=== PATIENT | male | born 1930 | race Caucasian/White ===

== ENCOUNTER 2016-06-21 09:31 | Inpatient (IN) | payer MEDICARE ==
[2016-06-21] VITALS (11 sets, daily range): BP systolic 106–191; BP diastolic 58–92; PULSE 74–94; RESP 17–31; TEMP 96.6–97.6; O2SAT 77–96
[~2016-06-21] VITALS: Ht 162.6 cm; Wt 89.1 kg
[~2016-06-21 09:31] MED LIST: ALBU0.63 NEB; ALLO100T PO; CARV3.12 PO; FERR325T PO; FURO40TA PO; IPRA1POW; LISI2.5T3 PO; POTA75TA; PRED20 PO; PRIM50TA5 PO; SPIRCAP INH; SYMB160A INH; TERA5CAP3 PO; VENTAER INH
[2016-06-21] MEDS ORDERED: FUROSEMIDE 40 MG/4 ML VIAL IV PUSH ONE (10:00)
[2016-06-21] MEDS ORDERED: methylPREDNISolone SOD SUCC 125 MG/2 ML VIAL IVP ONE (10:00)
[2016-06-21] MEDS ORDERED: SODIUM CHLORIDE 0.9% FLUSH 5 ML FLUSH IVF PRN (10:00)
[2016-06-21] MEDS: RESP: ALBUTEROL 2.5 MG/IPRATROPIUM 0.5 MG NEB (SCH) INH (10:00)
--- NOTE | 2016-06-21 10:03 | PD ---
HPI Chief Complaint: Respiratory Distress Time Seen by Provider: 09:48 Travel History International Travel<30 days: No Contact w/Intl Traveler<30days: No Traveled to known affect area: No History of Present Illness HPI 86-year-old male was brought in emergently from triage with history of respiratory distress. His brought him in and she is the main person giving history since patient seems to be in distress. As per her he has history of significant COPD and congestive heart failure. He requires 2 L of oxygen at home but states he's been using 3 L. She says that she has noticed he seems puffier than usual even though he's been taking his water pill. For past 3-4 days she has noticed that he has been short of breath even at rest. She wanted to bring him earlier but patient did not want to come in initially. Today he was willing and seemed extremely short of breath. He's been using his inhalers like he is supposed to. His said that last time he was in the emergency room and admitted was in March. When he was discharged home he was sent with oxygen. He has had ICU admissions in the past. Patient denies of any chest pain this time. In triage his oxygen saturation was 86% on 3 L of oxygen via nasal cannula. Once he was brought in the room and was settled on the stretcher his oxygen saturation was running 96-98% on 3 L via nasal cannula. However patient did appear to be in moderate distress. No history of GI bleed. Patient did appear pale and upon asking his mentioned that he has required transfusions in the past. Patient is on ferrous sulfate daily at home. He has required ablation in his stomach for GI bleed at [facility] in the past. Once patient settled and he was able to answer questions appropriately. No history of fever, chills or cough. Upon asking told me that he has borderline diabetes but not on any medications. His bedside blood glucose was 99. PFSH Past Medical History Narrative Medical List of his past medical, surgical and social history is reviewed from the nursing note. Anemia: Yes Arthritis: Yes Blood Disorders: No Anxiety: No Depression: No Cancer: No Cardiovascular Problems: Yes High Cholesterol: No Congestive Heart Failure: Yes COPD: Yes Coronary Artery Disease: Yes Diabetes: Yes (diet controlled) Patient Takes Glucophage: No Endocrine: Yes (DIET CONTROLLED DIABETES) Genitourinary: No Hepatitis: No Hiatal Hernia: Yes Hypertension: Yes Immune Disorder: No Implanted Vascular Access Dvce: Yes Medical other: Yes (GI BLEEDING, ANEMIA) Musculoskeletal: Yes Neurologic: No Psychiatric: No Reproductive: No Respiratory: Yes Immunizations Current: Yes Thyroid Disease: No Past Surgical History Abdominal Surgery: Yes (APPENDIX) Appendectomy: Yes Cardiac Surgery: Yes (LEFT CAROTID ENDARTERECTOMY) Eye Surgery: Yes (BILAT. CATARACTS) Joint Replacement: Yes Oral Surgery: Yes (DENTURES PARTIAL) Pacemaker: No Other Surgery: Yes (LEFT CAROTID ENDARTERECTOMY) Social History Alcohol Use: Yes (scotch and water 3xweek) Tobacco Use: No Substance Use: No Allergies-Medications (Allergen,Severity, Reaction): Coded Allergies: No Known Allergies (Verified , 04/10/16) Comments No known drug allergies. Reported Meds & Prescriptions Reported Meds & Active Scripts Active Reported Potassium Chloride ER (Potassium Chloride) 20 Meq Tab 40 Meq PO DAILY Ipratropium Neb (Ipratropium [place]) 0.5 Mg/2.5 Ml Amp 0.5 Mg NEB Q6HR PRN Terazosin (Terazosin HCl) 5 Mg Cap 5 Mg PO HS Primidone 50 Mg Tab 50 Mg PO DAILY Lisinopril 2.5 Mg Tab 2.5 Mg PO DAILY Furosemide 40 Mg Tab 40 Mg PO DAILY Ferrous Sulfate 325 Mg Tab 325 Mg PO DAILY Carvedilol 3.125 Mg Tab 3.125 Mg PO BID Allopurinol 100 Mg Tab 100 Mg PO DAILY Ventolin Hfa 18 GM Inh (Albuterol Sulfate) 90 Mcg/Act Aer 2 Puff INH Q4H PRN Albuterol Neb (Albuterol Sulfate) 0.63 Mg/3 Ml Neb 0.63 Mg NEB Q6HR PRN Narrative Medication List of his home medications reviewed from the nursing note. Review of Systems Except as stated in HPI: all other systems reviewed are Neg Physical Exam Narrative GENERAL: Awake, alert, elderly, moderate to significant respiratory distress, anxious SKIN: Warm and dry. Pale. Generalized edema, senile ecchymosis HEAD: Atraumatic. Normocephalic. EYES: Pupils equal and round. No scleral icterus. No injection or drainage. Pallor ENT: No nasal bleeding or discharge. Mucous membranes pink and moist. NECK: Trachea midline. No JVD. CARDIOVASCULAR: Regular rate and rhythm. No murmur appreciated. RESPIRATORY: Decreased air entry bilaterally, end expiratory wheeze, accessory muscles of respiration used. GASTROINTESTINAL: Abdomen soft, non-tender, nondistended. Hepatic and splenic margins not palpable. MUSCULOSKELETAL: No obvious deformities. No clubbing. No cyanosis. No edema. NEUROLOGICAL: Awake and alert. No obvious cranial nerve deficits. Motor grossly within normal limits. Normal speech. PSYCHIATRIC: Appropriate mood and affect; insight and judgment normal. Data Data Last Documented VS Vital Signs Date Time Temp Pulse Resp B/P Pulse Ox O2 Delivery O2 Flow Rate FiO2 06/21/16 11:00 86 28 158/72 95 Nasal Cannula 3 06/21/16 09:33 97.6 Orders Electrocardiogram (06/21/16 ) Complete Blood Count With Diff (06/21/16 09:49) Comprehensive Metabolic Panel (06/21/16 09:49) B-Type Natriuretic Peptide (06/21/16 09:49) Prothrombin Time / Inr (Pt) (06/21/16 09:49) Magnesium (Mg) (06/21/16 09:49) Troponin I (06/21/16 09:49) Urinalysis - C+S If Indicated (06/21/16 09:49) Iv Access Insert/Monitor (06/21/16 09:49) Ecg Monitoring (06/21/16 09:49) Oximetry (06/21/16 09:49) Oxygen Administration (06/21/16 09:49) Chest, Single Ap (06/21/16 09:49) Sodium Chloride 0.9% Flush (Ns Flush) (06/21/16 10:00) Methylprednisolone So Succ Inj (Solumedr (06/21/16 10:00) Albuterol-Ipratropium Neb (Duoneb Neb) (06/21/16 10:00) Furosemide Inj (Lasix Inj) (06/21/16 10:00) Type And Screen (06/21/16 09:50) Admit To Inpatient (06/21/16 ) Code Status (06/21/16 12:16) Vital Signs (Adult) Q4H (06/21/16 12:16) Activity Oob With Assistance (06/21/16 12:16) Diet Heart Healthy (06/21/16 Lunch) Sodium Chloride 0.9% Flush (Ns Flush) (06/21/16 12:30) Sodium Chloride 0.9% Flush (Ns Flush) (06/21/16 21:00) Acetaminophen (Tylenol) (06/21/16 12:30) Ondansetron Inj (Zofran Inj) (06/21/16 13:00) Bisacodyl Supp (Dulcolax Supp) (06/21/16 13:00) Magnesium Hydroxide Liq (Milk Of Magnesi (06/21/16 14:00) Resp Oxygen Dariel C Titrat 1-4 L (06/21/16 ) Pt Request For Service (06/21/16 12:16) Scd Bilateral/Knee High LEVI.BID (06/21/16 12:16) Naloxone Inj (Narcan Inj) (06/21/16 12:30) Inpatient Certification (06/21/16 ) Methylprednisolone So Succ Inj (Solumedr (06/21/16 18:00) Urinary Catheter Insert/Apply (06/21/16 12:19) Albuterol-Ipratropium Neb (Duoneb Neb) (06/21/16 16:00) Albuterol-Ipratropium Neb (Duoneb Neb) (06/21/16 14:00) Complete Blood Count With Diff (06/22/16 06:00) Basic Metabolic Panel (Bmp) (06/22/16 06:00) Magnesium (Mg) (06/22/16 06:00) Ns + Kcl 20 Meq Inj (Ns + Kcl 20 Meq Inj (06/21/16 12:30) Allopurinol (Zyloprim) (06/22/16 09:00) Ferrous Sulfate (Ferrous Sulfate) (06/22/16 09:00) Lisinopril (Prinivil) (06/22/16 09:00) Primidone (Mysoline) (06/22/16 09:00) Terazosin (Hytrin) (06/21/16 21:00) Carvedilol (Coreg) (06/21/16 21:00) Chest, Pa & Lat (06/22/16 08:00) Furosemide Inj (Lasix Inj) (06/21/16 18:00) Junior Legal Secretary / Telemetry LEVI.Q8H (06/21/16 12:29) Admit Order (Ed Use Only) (06/21/16 12:36) Labs Laboratory Tests Test 06/21/16 06/21/16 09:55 10:35 White Blood Count 7.4 TH/MM3 Red Blood Count 3.11 MIL/MM3 Hemoglobin 9.5 GM/DL Hematocrit 29.2 % Mean Corpuscular Volume 93.9 FL Mean Corpuscular Hemoglobin 30.7 PG Mean Corpuscular Hemoglobin 32.7 % Concent Red Cell Distribution Width 15.6 % Platelet Count 232 TH/MM3 Mean Platelet Volume 7.3 FL Neutrophils (%) (Auto) 81.7 % Lymphocytes (%) (Auto) 8.8 % Monocytes (%) (Auto) 8.9 % Eosinophils (%) (Auto) 0.4 % Basophils (%) (Auto) 0.2 % Neutrophils # (Auto) 6.0 TH/MM3 Lymphocytes # (Auto) 0.7 TH/MM3 Monocytes # (Auto) 0.7 TH/MM3 Eosinophils # (Auto) 0.0 TH/MM3 Basophils # (Auto) 0.0 TH/MM3 CBC Comment DIFF FINAL Differential Comment Sodium Level 125 MEQ/L Potassium Level 4.9 MEQ/L Chloride Level 85 MEQ/L Carbon Dioxide Level 33.0 MEQ/L Anion Gap 7 MEQ/L Blood Urea Nitrogen 17 MG/DL Creatinine 1.00 MG/DL Estimat Glomerular Filtration 71 ML/MIN Rate Random Glucose 94 MG/DL Calcium Level 8.3 MG/DL Magnesium Level 2.0 MG/DL Total Bilirubin 0.4 MG/DL Aspartate Amino Transf 14 U/L (AST/SGOT) Alanine Aminotransferase 14 U/L (ALT/SGPT) Alkaline Phosphatase 127 U/L Troponin I 0.02 NG/ML B-Type Natriuretic Peptide 628 PG/ML Total Protein 6.2 GM/DL Albumin 3.2 GM/DL Blood Type O POSITIVE Antibody Screen NEGATIVE Prothrombin Time 11.3 SEC Prothromb Time International 1.0 RATIO Ratio Urine Color LIGHT-YELLOW Urine Turbidity CLEAR Urine pH 6.0 Urine Specific [place] 1.008 Urine Protein NEG mg/dL Urine Glucose (UA) NEG mg/dL Urine Ketones NEG mg/dL Urine Occult Blood NEG Urine Nitrite NEG Urine Bilirubin NEG Urine Urobilinogen LESS THAN 2.0 MG/DL Urine Leukocyte Esterase NEG Urine RBC 1 /hpf Urine WBC LESS THAN 1 /hpf Urine Mucus FEW /lpf Microscopic Urinalysis Comment CULT NOT INDICATED MDM Medical Decision Making Medical Screen Exam Complete: Yes Emergency Medical Condition: Yes Medical Record Reviewed: Yes Interpretation(s) Twelve-lead EKG was reviewed by me. Normal sinus rhythm, normal axis, right bundle branch block. Heart rate of 73 bpm. Differential Diagnosis Acute COPD exacerbation, hypoxia, pneumonia, pleural effusion, congestive heart failure, symptomatic anemia Narrative Course 10:02 AM awaiting for the blood test results to come back. I have ordered 3 duo nebs for him along with IV Solu-Medrol bolus. Patient will also be getting 60 mg of IV Lasix. He does appear pale and there is a chance he might require blood transfusion. I will reassess him in a bit. I anticipate admission given his initial presentation. 11:24 AM blood test results are back and patient has hyponatremia and congestive heart failure. Awaiting for the hospitalist to call back for admission. Upon reassessment patient feels a little bit better. Then about the admission and are happy with the plan. 12:30 PM reassessed the patient and he feels a little better. He has so far urinated about 800 ML's of urine. I've ordered a Miller catheter. Critical Care Narrative Aggregate critical care time was 30 minutes. Time to perform other separately billable procedures was not included in the critical care time. My time did not include minutes spent treating any other patients simultaneously or on activities that did not directly contribute to the patient's treatment. The services I provided to this patient were to treat and/or prevent clinically significant deterioration that could result in: Dyspnea, I provided critical care services requiring my management, as noted below: Chart data review, documentation time, medication orders and management, vital sign assessments/reviewing monitor data, ordering and reviewing lab tests, ordering and interpreting/reviewing x-rays and diagnostic studies, care of the patient and discussion of the patient with the admitting physicians. Procedures EKG Prior to Arrival: No HemaPrompt Point of Care Internal Pos. & Neg. Controls: Passed Fecal Specimen Occult Blood: Negative Diagnosis Primary Impression: Respiratory distress Additional Impressions: Acute exacerbation of chronic obstructive pulmonary disease (COPD) Systolic CHF, acute on chronic Hyponatremia Fluid overload Qualified Code: E87.70 - Hypervolemia, unspecified hypervolemia type Admitting Information Admitting Physician Requests: it Nicole Watson MD Jun 21, 2016 10:03
[2016-06-21] MEDS ORDERED: IPRA0.02 NEB (10:05)
[2016-06-21] MEDS ORDERED: POTA-163 PO (10:05)
[2016-06-21 10:11] LABS: BASOPHIL % 0.2 % (0.0-2.0); EOSINOPHIL % 0.4 % (0.0-4.0); HEMATOCRIT 29.2 % (39.0-51.0); HEMO FLAGS DIFF FINAL; LYMPH % 8.8 % (9.0-44.0); LYMPHOCYTE # 0.7 TH/MM3 (1.0-4.8); MEAN CELL VOLUME 93.9 FL (80.0-100.0); MEAN CORPUSCULAR HEMOGLOBIN 30.7 PG (27.0-34.0); MEAN CORPUSCULAR HGB CONC 32.7 % (32.0-36.0); MONO % 8.9 % (0.0-8.0); NEUT % 81.7 % (16.0-70.0); PLATELET COUNT 232 TH/MM3 (150-450); RED BLOOD COUNT 3.11 MIL/MM3 (4.50-5.90); RED CELL DISTRIBUTION WIDTH 15.6 % (11.6-17.2); WHITE BLOOD COUNT 7.4 TH/MM3 (4.0-11.0)
--- NOTE | 2016-06-21 10:17 | RADRPT ---
EXAM DATE/TIME: 06/21/2016 09:52 [facility] COMPARISON: CHEST SINGLE AP, April 10, 2016, 15:34. INDICATIONS : COPD, CHF, Short of breath for 3 days. MEDICAL HISTORY : Congestive heart failure. Chronic obstructive pulmonary disease. SURGICAL HISTORY : None. ENCOUNTER: Initial ACUITY: 2 days PAIN SCORE: 0/10 LOCATION: Bilateral chest FINDINGS: A single view of the chest demonstrates minimal bibasilar densities and small effusions. Cardiomegaly and tortuous thoracic aorta. The cardiomediastinal contours are unremarkable. Osseous structures ar e intact. Right humeral prosthesis. CONCLUSION: 1. Cardiomegaly and small bilateral pleural effusions. 2. Bibasilar atelectasis. James Maciel MD on June 21, 2016 at 10:15 Board Certified Radiologist. This report was verified electronically.
[2016-06-21 10:28] LABS: ANION GAP 7 MEQ/L (5-15); AST (GOT) 14 U/L (15-37); BLOOD UREA NITROGEN 17 MG/DL (7-18); CHLORIDE 85 MEQ/L (98-107); GLOMERULAR FILTRATION RATE 71 ML/MIN (>89); POTASSIUM 4.9 MEQ/L (3.5-5.1); SODIUM (NA) 125 MEQ/L (136-145)
[2016-06-21 10:33] LABS: ALKALINE PHOSPHATASE 127 U/L (45-117); ALT (GPT) 14 U/L (12-78); TOTAL BILIRUBIN ADULT 0.4 MG/DL (0.2-1.0)
[2016-06-21 10:54] LABS: BLOOD, URINE NEG (NEG); COMMENT (UR) CULT NOT INDICATED; CULTURE IF INDICATED CULT NOT INDICATED; GLUCOSE,URINE NEG (NEG); KETONE, URINE NEG (NEG); MUCUS URINE FEW /lpf (OCC); NITRITE,URINE NEG (NEG); URINE COLOR LIGHT-YELLOW (YELLW/STRAW)
[2016-06-21 11:04] LABS: PROTHROMBIN TIME - PATIENT 11.3 SEC (9.8-11.6)
[2016-06-21] MEDS ORDERED: ACETAMINOPHEN 325 MG TAB PO PRN (12:30)
[2016-06-21] MEDS ORDERED: SODIUM CHLORIDE 0.9% FLUSH 5 ML FLUSH FLUSH PRN (12:30)
[2016-06-21] MEDS ORDERED: NALOXONE HCL 0.4 MG/ML AMP IV PRN (12:30)
[2016-06-21] MEDS ORDERED: BISACODYL 10 MG SUPP PR PRN (13:00)
[2016-06-21] MEDS ORDERED: ONDANSETRON HCL 4 MG/2 ML VIAL IVP PRN (13:00)
[2016-06-21] MEDS: NS + KCL 20 MEQ INJ 1,000 ML IV SCH (13:13)
[2016-06-21] MEDS ORDERED: MAGNESIUM HYDROXIDE SUSP 30 ML CUP PO PRN (14:00)
--- NOTE | 2016-06-21 16:11 | HHI.HP ---
HPI Service [facility] Hospitalists Primary Care Physician Brady Whitfield MD Admission Diagnosis respiratory distress, COPD and CHF exacerbation, hyponatremia Chief Complaint: SOB Travel History International Travel<30 Days: No Contact w/Intl Traveler <30 Da: No Traveled to Known Affected Are: No History of Present Illness Patient is a pleasant 86-year-old male with known history of COPD and systolic CHF. Patient was most recently hospitalized at [facility] 03/1712 due to COPD exacerbation. During that hospitalization, patient was treated with IV steroids, IV Levaquin, when necessary BiPAP was used as well. Patient' s mobility was compromised by severe acute compression fracture involving T7. Patient returns to [place] this morning with respiratory distress. Patient complains of worsening shortness of breath for 3-4 days prior to arrival. Patient also complains of worsening lower extremity weakness starting at his feet and going all the way up to his lower abdomen. Patient also noted swelling in his face. For the last several days patient has been too weak to get off of the toilet by himself and his had to pull him up. Patient reports that he is been using his inhalers for COPD as prescribed. Per ER physician patient originally presented to the ER with some respiratory distress. In triage his oxygen saturation was 86% on 3 L by nasal cannula. Patient given IV Lasix, Solu-Medrol, nebulized breathing treatments and is now saturating adequately on 3 L by nasal cannula. At the time of my examination patient appeared comfortable, but quickly became short of breath with minimal movement in the bed. Patient has obvious volume overload with 2+ pitting edema in his lower extremities up to the level of his knees. On auscultation of his lungs, his air movement is poor, tight, and wheezing. Patient will be admitted to [facility] for further evaluation and treatment. I anticipate that patient will require minimally a 3 to four- day hospitalization. Review of Systems Constitutional: DENIES: Diaphoretic episodes, Fatigue, Fever, Weight gain, Weight loss, Chills, Dizziness, Change in appetite, Night Sweats Endocrine: DENIES: Heat/cold intolerance, Polydipsia, Polyuria, Polyphagia Eyes: DENIES: Blurred vision, Diplopia, Eye inflammation, Eye pain, Vision loss , Photosensitivity, Double Vision Ears, nose, mouth, throat: DENIES: Tinnitus, Hearing loss, Vertigo, Nasal discharge, Oral lesions, Throat pain, Hoarseness, Ear Pain, Running Nose, Epistaxis, Sinus Pain, Toothache, Odynophagia Respiratory: COMPLAINS OF: Wheezing, Shortness of breath, DENIES: Apneas, Cough, Snoring, Hemoptysis, Sputum production Cardiovascular: DENIES: Chest pain, Palpitations, Syncope, Dyspnea on Exertion , PND, Lower Extremity Edema, Orthopnea, Claudication Gastrointestinal: DENIES: Abdominal pain, Black stools, Bloody stools, BRB per rectum, Constipation, Diarrhea, GERD, Nausea, Reflux, Vomiting, Difficulty Swallowing, Anorexia Genitourinary: DENIES: Urinary frequency, Urinary incontinence, Urgency, Hematuria, Dysuria, Nocturia Musculoskeletal: DENIES: Joint pain, Muscle aches, Stiffness, Joint Swelling, Back pain, Neck pain Integumentary: DENIES: Abnormal pigmentation, Nail changes, Pruritus, Rash Hematologic/lymphatic: DENIES: Bruising, Lymphadenopathy Immunologic/allergic: DENIES: Eczema, Urticaria Neurologic: DENIES: Abnormal gait, Headache, Localized weakness, Paresthesias, Seizures, Speech Problems, Tremor, Poor Balance Psychiatric: DENIES: Anxiety, Confusion, Mood changes, Depression, Hallucinations, Agitation, Suicidal Ideation, Homicidal Ideation, Delusions, History of Bipolar, History of Schizophrenia Past Family Social History Past Medical History Recurrent anemia, Gastric antral vascular ectasia Patient is followed by gastroenterology at [facility] Patient has undergone argon plasma coagulation, January 2013 Per family, patient requires frequent transfusions for this condition Hypertension COPD mod/severe Gout Benign essential tremor Hyperlipidemia Venous insufficiency Liver cirrhosis CHF. systolic . ef 50% AAA Pulmonary HTN 2D echo (06/25/15): - Estimated EF 50%. - Mild hypokinesis of the apical myocardium - PA peak pressure mildly increased at 45mmHg Past Surgical History Appendectomy Cataract surgery Rotator cuff repair Tonsillectomy and adenoidectomy Bilateral total knee after plasty Endovascular repair of abdominal aortic aneurysm spring 2013 Left carotid endarterectomy Reported Medications Reported Meds & Active Scripts Active Reported Potassium Chloride ER (Potassium Chloride) 20 Meq Tab 40 Meq PO DAILY Ipratropium Neb (Ipratropium [place]) 0.5 Mg/2.5 Ml Amp 0.5 Mg NEB Q6HR PRN Terazosin (Terazosin HCl) 5 Mg Cap 5 Mg PO HS Primidone 50 Mg Tab 50 Mg PO DAILY Lisinopril 2.5 Mg Tab 2.5 Mg PO DAILY Furosemide 40 Mg Tab 40 Mg PO DAILY Ferrous Sulfate 325 Mg Tab 325 Mg PO DAILY Carvedilol 3.125 Mg Tab 3.125 Mg PO BID Allopurinol 100 Mg Tab 100 Mg PO DAILY Ventolin Hfa 18 GM Inh (Albuterol Sulfate) 90 Mcg/Act Aer 2 Puff INH Q4H PRN Albuterol Neb (Albuterol Sulfate) 0.63 Mg/3 Ml Neb 0.63 Mg NEB Q6HR PRN Allergies: Coded Allergies: No Known Allergies (Verified , 04/10/16) Family History non-contributory Social History Hx of tobacco use. He quit smoking 25 years ago. 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 Patient has 4 children one of whom lives locally One of his daughters is a nurse who lives in [place] who is very involved with his medical conditions Physical Exam Vital Signs Vital Signs Date Time Temp Pulse Resp B/P Pulse Ox O2 Delivery O2 Flow Rate FiO2 06/21/16 13:47 92 Nasal Cannula 3.00 06/21/16 11:00 86 28 158/72 95 Nasal Cannula 3 06/21/16 09:50 74 24 187/86 92 Nasal Cannula 3 06/21/16 09:48 82 31 191/92 92 Nasal Cannula 3 06/21/16 09:41 92 Nasal Cannula 3 06/21/16 09:41 73 31 96 Nasal Cannula 3 06/21/16 09:41 92 Nasal Cannula 3 06/21/16 09:33 97.6 83 18 145/75 82 Nasal Cannula 3 Physical Exam GENERAL: This is a well-nourished, well-developed patient, in no apparent distress. SKIN: No rashes, ecchymoses or lesions. Cool and dry. HEAD: Atraumatic. Normocephalic. No temporal or scalp tenderness. EYES: Pupils equal round and reactive. Extraocular motions intact. No scleral icterus. No injection or drainage. ENT: Nose without bleeding, purulent drainage or septal hematoma. Throat without erythema, tonsillar hypertrophy or exudate. Uvula midline. Airway patent. NECK: Trachea midline. No JVD or lymphadenopathy. Supple, nontender, no meningeal signs. CARDIOVASCULAR: Regular rate and rhythm without murmurs, gallops, or rubs. RESPIRATORY: Clear to auscultation. Breath sounds equal bilaterally. No wheezes , rales, or rhonchi. GASTROINTESTINAL: Abdomen soft, non-tender, nondistended. No hepato-splenomegaly , or palpable masses. No guarding. MUSCULOSKELETAL: 2+ pitting edema starting in his feet and extending up to his knees x b/l NEUROLOGICAL: Awake and alert. Cranial nerves II through XII intact. Motor and sensory grossly within normal limits. Five out of 5 muscle strength in all muscle groups. Normal speech. Laboratory Laboratory Tests Test 06/21/16 06/21/16 09:55 10:35 White Blood Count 7.4 Red Blood Count 3.11 Hemoglobin 9.5 Hematocrit 29.2 Mean Corpuscular Volume 93.9 Mean Corpuscular Hemoglobin 30.7 Mean Corpuscular Hemoglobin 32.7 Concent Red Cell Distribution Width 15.6 Platelet Count 232 Mean Platelet Volume 7.3 Neutrophils (%) (Auto) 81.7 Lymphocytes (%) (Auto) 8.8 Monocytes (%) (Auto) 8.9 Eosinophils (%) (Auto) 0.4 Basophils (%) (Auto) 0.2 Neutrophils # (Auto) 6.0 Lymphocytes # (Auto) 0.7 Monocytes # (Auto) 0.7 Eosinophils # (Auto) 0.0 Basophils # (Auto) 0.0 CBC Comment DIFF FINAL Differential Comment Sodium Level 125 Potassium Level 4.9 Chloride Level 85 Carbon Dioxide Level 33.0 Anion Gap 7 Blood Urea Nitrogen 17 Creatinine 1.00 Estimat Glomerular Filtration 71 Rate Random Glucose 94 Calcium Level 8.3 Magnesium Level 2.0 Total Bilirubin 0.4 Aspartate Amino Transf 14 (AST/SGOT) Alanine Aminotransferase 14 (ALT/SGPT) Alkaline Phosphatase 127 Troponin I 0.02 B-Type Natriuretic Peptide 628 Total Protein 6.2 Albumin 3.2 Blood Type O POSITIVE Antibody Screen NEGATIVE Prothrombin Time 11.3 Prothromb Time International 1.0 Ratio Urine Color LIGHT-YELLOW Urine Turbidity CLEAR Urine pH 6.0 Urine Specific [place] 1.008 Urine Protein NEG Urine Glucose (UA) NEG Urine Ketones NEG Urine Occult Blood NEG Urine Nitrite NEG Urine Bilirubin NEG Urine Urobilinogen LESS THAN 2.0 Urine Leukocyte Esterase NEG Urine RBC 1 Urine WBC LESS THAN 1 Urine Mucus FEW Microscopic Urinalysis Comment CULT NOT INDICATED Result Diagram: 06/21/1695406/21/16954 Septic Shock Reassessment Heart: Regular rate and rhythm Lungs: Clear Skin: Warm Peripheral Pulses: Bounding Right Radial Bounding Left Radial Bounding Right Popliteal Bounding Left Popliteal Bounding Right Dorsalis Pedis Bounding Left Dorsalis Pedis Bounding Right Posterior Tibial Bounding Left Posterior Tibial Capillary Refill: Brisk Assessment and Plan Problem List: (1) Systolic CHF, acute on chronic Status: Chronic Plan: - continue IV diuresis with lasix 40mg IV BID, kcl - Repeat CXR in AM - BMP, Mag, BNP in AM (2) Acute exacerbation of chronic obstructive pulmonary disease (COPD) Status: Acute Plan: - IV solumedrol - duonebs q4hrs, and q2hrs prn - symbicort - repeat CXR in AM (3) T7 vertebral fracture Status: Acute Plan: - PT to evaluate (4) BPH (benign prostatic hyperplasia) Status: Chronic Plan: - continue home meds (5) HTN (hypertension) Status: Acute Plan: - stable - lisinopril, coreg (6) Gout Status: Chronic Plan: - continue allopurinol Physician Certification 2 Midnight Certification Type: Admission for Inpatient Services Order for Inpatient Services The services are ordered in accordance with Medicare regulations or non- Medicare payer requirements, as applicable. In the case of services not specified as inpatient-only, they are appropriately provided as inpatient services in accordance with the 2-midnight benchmark. Estimated LOS (days): 3 3 days is the estimated time the patient will need to remain in the hospital, assuming treatment plan goals are met and no additional complications. Post-Hospital Plan: SNF Problem Qualifiers (1) T7 vertebral fracture: (2) HTN (hypertension): Qualified Code: I10 - Essential hypertension (3) Gout: Qualified Code: M1A.9XX0 - Chronic gout without tophus, unspecified cause, unspecified site Jakob Friedman DO Jun 21, 2016 16:11
[2016-06-21] MEDS: RESP: ALBUTEROL 2.5 MG/IPRATROPIUM 0.5 MG NEB (SCH) NEB (16:44)
[2016-06-21] MEDS: methylPREDNISolone SOD SUCC 40 MG/1 ML VIAL IV PUSH SCH (18:05)
[2016-06-21] MEDS: FUROSEMIDE 40 MG/4 ML VIAL IV PUSH SCH (18:06)
[2016-06-21] MEDS: BUDESONIDE-FORMOTEROL 160/4.5 MCG INHALER INH SCH (21:00)
[2016-06-21] MEDS: TERAZOSIN HCL 5 MG CAP PO SCH (21:26)
[2016-06-21] MEDS: CARVEDILOL 3.125 MG TAB PO SCH (21:26)
[2016-06-21] MEDS: POTASSIUM CHLORIDE 20 MEQ CONTROLLED RELEASE TAB PO SCH (21:26)
[2016-06-21] MEDS: SODIUM CHLORIDE 0.9% FLUSH 5 ML FLUSH FLUSH SCH (21:27)
[2016-06-22] VITALS (10 sets, daily range): BP systolic 118–166; BP diastolic 56–73; PULSE 70–88; RESP 18–20; TEMP 97–98.3; O2SAT 93–100
[2016-06-22] MEDS: methylPREDNISolone SOD SUCC 40 MG/1 ML VIAL IV PUSH SCH ×4 (00:49→17:14)
[2016-06-22] MEDS: NS + KCL 20 MEQ INJ 1,000 ML IV SCH ×2 (00:50→16:16)
[2016-06-22] MEDS: RESP: ALBUTEROL 2.5 MG/IPRATROPIUM 0.5 MG NEB (SCH) NEB ×4 (07:34→20:17)
--- NOTE | 2016-06-22 08:33 | RADRPT ---
EXAM DATE/TIME: 06/22/2016 07:57 [facility] COMPARISON: No previous studies available for comparison. INDICATIONS : Short of breath. MEDICAL HISTORY : Chronic obstructive pulmonary disease. Cardiovascular disease. Hypertension. Hiatal hernia. SURGICAL HISTORY : None. ENCOUNTER: Subsequent ACUITY: 2 days PAIN SCORE: 2/10 LOCATION: Bilateral chest FINDINGS: PA and lateral views of the chest demonstrate cardiomegaly with tortuous thoracic aorta. Small bilate ral pleural effusions. Minimal bibasilar densities. Right humeral/shoulder prosthesis. CONCLUSION: 1. Small bilateral pleural effusions and bibasilar atelectasis. 2. Cardiomegaly. James Maciel MD on June 22, 2016 at 8:30 Board Certified Radiologist. This report was verified electronically.
[2016-06-22] MEDS: SODIUM CHLORIDE 0.9% FLUSH 5 ML FLUSH FLUSH SCH ×2 (08:44→21:41)
[2016-06-22] MEDS: BUDESONIDE-FORMOTEROL 160/4.5 MCG INHALER INH SCH ×2 (08:45→21:42)
[2016-06-22] MEDS: FUROSEMIDE 40 MG/4 ML VIAL IV PUSH SCH ×2 (08:46→17:15)
[2016-06-22] MEDS: ALLOPURINOL 100 MG TAB PO SCH (08:46)
[2016-06-22] MEDS: POTASSIUM CHLORIDE 20 MEQ CONTROLLED RELEASE TAB PO SCH ×2 (08:46→21:41)
[2016-06-22] MEDS: FERROUS SULFATE 325 MG (65 MG ELEMENTAL IRON) TAB PO SCH (08:46)
[2016-06-22] MEDS: LISINOPRIL 5 MG TAB PO SCH (08:46)
[2016-06-22] MEDS: CARVEDILOL 3.125 MG TAB PO SCH ×2 (08:46→21:41)
[2016-06-22 09:33] LABS: AUTOMATED NEUTROPHIL # 7.9 TH/MM3 (1.8-7.7); BASOPHIL % 0.1 % (0.0-2.0); HEMATOCRIT 28.2 % (39.0-51.0); HEMO FLAGS DIFF FINAL; LYMPH % 6.1 % (9.0-44.0); LYMPHOCYTE # 0.5 TH/MM3 (1.0-4.8); MEAN CELL VOLUME 93.3 FL (80.0-100.0); MEAN CORPUSCULAR HEMOGLOBIN 31.1 PG (27.0-34.0); MEAN CORPUSCULAR HGB CONC 33.4 % (32.0-36.0); MONO % 2.6 % (0.0-8.0); NEUT % 91.2 % (16.0-70.0); PLATELET COUNT 232 TH/MM3 (150-450); RED BLOOD COUNT 3.03 MIL/MM3 (4.50-5.90); RED CELL DISTRIBUTION WIDTH 15.6 % (11.6-17.2); WHITE BLOOD COUNT 8.7 TH/MM3 (4.0-11.0)
[2016-06-22 09:53] LABS: MAGNESIUM 1.9 MG/DL (1.5-2.5); POTASSIUM 4.8 MEQ/L (3.5-5.1)
[2016-06-22] MEDS: PRIMIDONE 50 MG TAB PO SCH (10:31)
--- NOTE | 2016-06-22 14:24 | HHI.PR ---
Subjective Remarks Pt reports that overall he is feeling better today He states that his LE edema is less and that he is not having as difficult of time to breath. Objective Vitals Vital Signs Date Time Temp Pulse Resp B/P Pulse Ox O2 Delivery O2 Flow Rate FiO2 06/22/16 12:00 97.8 70 20 136/62 98 06/22/16 09:14 75 06/22/16 08:40 Nasal Cannula 3.00 06/22/16 08:00 98.1 74 20 159/70 100 06/22/16 07:37 97 Nasal Cannula 3.00 06/22/16 04:00 98.0 73 20 145/65 96 06/22/16 00:00 97.9 88 20 139/70 95 06/21/16 23:52 94 Nasal Cannula 3.00 06/21/16 20:32 82 06/21/16 20:00 97.4 87 20 106/58 96 06/21/16 20:00 Nasal Cannula 3.00 06/21/16 18:27 96.6 94 24 142/70 95 06/21/16 15:48 83 17 151/73 93 Nasal Cannula 3 06/21/16 06/21/16 06/22/16 15:00 23:00 07:00 Intake Total 240 ml 120 ml Output Total 1000 ml 1800 ml 1200 ml Balance -1000 ml -1560 ml -1080 ml Intake Oral 240 ml 120 ml Output Urine Total 1000 ml 1800 ml 1200 ml # Voids 0 0 # Bowel Movements 0 0 Result Diagram: 06/22/16 0840 06/22/16 0840 Other Results Laboratory Tests Test 06/21/16 06/21/16 06/22/16 06/22/16 09:55 10:35 08:40 10:00 White Blood Count 7.4 TH/MM3 8.7 TH/MM3 Red Blood Count 3.11 MIL/MM3 3.03 MIL/MM3 Hemoglobin 9.5 GM/DL 9.4 GM/DL Hematocrit 29.2 % 28.2 % Mean Corpuscular Volume 93.9 FL 93.3 FL Mean Corpuscular Hemoglobin 30.7 PG 31.1 PG Mean Corpuscular Hemoglobin 32.7 % 33.4 % Concent Red Cell Distribution Width 15.6 % 15.6 % Platelet Count 232 TH/MM3 232 TH/MM3 Mean Platelet Volume 7.3 FL 7.4 FL Neutrophils (%) (Auto) 81.7 % 91.2 % Lymphocytes (%) (Auto) 8.8 % 6.1 % Monocytes (%) (Auto) 8.9 % 2.6 % Eosinophils (%) (Auto) 0.4 % 0.0 % Basophils (%) (Auto) 0.2 % 0.1 % Neutrophils # (Auto) 6.0 TH/MM3 7.9 TH/MM3 Lymphocytes # (Auto) 0.7 TH/MM3 0.5 TH/MM3 Monocytes # (Auto) 0.7 TH/MM3 0.2 TH/MM3 Eosinophils # (Auto) 0.0 TH/MM3 0.0 TH/MM3 Basophils # (Auto) 0.0 TH/MM3 0.0 TH/MM3 CBC Comment DIFF FINAL DIFF FINAL Differential Comment Sodium Level 125 MEQ/L 128 MEQ/L Potassium Level 4.9 MEQ/L 4.8 MEQ/L Chloride Level 85 MEQ/L 85 MEQ/L Carbon Dioxide Level 33.0 MEQ/L 37.0 MEQ/L Anion Gap 7 MEQ/L 6 MEQ/L Blood Urea Nitrogen 17 MG/DL 22 MG/DL Creatinine 1.00 MG/DL 1.03 MG/DL Estimat Glomerular Filtration 71 ML/MIN 68 ML/MIN Rate Random Glucose 94 MG/DL 145 MG/DL Calcium Level 8.3 MG/DL 8.4 MG/DL Magnesium Level 2.0 MG/DL 1.9 MG/DL Total Bilirubin 0.4 MG/DL Aspartate Amino Transf 14 U/L (AST/SGOT) Alanine Aminotransferase 14 U/L (ALT/SGPT) Alkaline Phosphatase 127 U/L Troponin I 0.02 NG/ML B-Type Natriuretic Peptide 628 PG/ML 291 PG/ML Total Protein 6.2 GM/DL Albumin 3.2 GM/DL Blood Type O POSITIVE Antibody Screen NEGATIVE Prothrombin Time 11.3 SEC Prothromb Time International 1.0 RATIO Ratio Urine Color LIGHT-YELLOW Urine Turbidity CLEAR Urine pH 6.0 Urine Specific [place] 1.008 Urine Protein NEG mg/dL Urine Glucose (UA) NEG mg/dL Urine Ketones NEG mg/dL Urine Occult Blood NEG Urine Nitrite NEG Urine Bilirubin NEG Urine Urobilinogen LESS THAN 2.0 MG/DL Urine Leukocyte Esterase NEG Urine RBC 1 /hpf Urine WBC LESS THAN 1 /hpf Urine Mucus FEW /lpf Microscopic Urinalysis Comment CULT NOT INDICATED Imaging Last Impressions Chest X-Ray 06/22/16 0800 Signed Impressions: Service Date/Time: Wednesday, June 22, 2016 07:57 - CONCLUSION: 1. Small bilateral pleural effusions and bibasilar atelectasis. 2. Cardiomegaly. James Maciel MD Objective Remarks General: NAD, AAOx3 Chest: Bilateral wheezing and coarse breath sounds Cardiac: Regular Abd: +BS, soft ND/NT Ext: 1+ RLE edema, minimal LLE edema A/P Problem List: (1) Systolic CHF, acute on chronic Status: Chronic Plan: - Continue IV diuresis with Lasix 40mg IV BID and potassium - Repeat CXR (06/22) --> Small bilateral pleural effusions and bibasilar atelectasis. Cardiomegaly. - BMP, Mag, BNP in AM - Pt currently on 3L via NC - Monitor I&Os - Supportive care - DVT prophylaxis (2) Acute exacerbation of chronic obstructive pulmonary disease (COPD) Status: Acute Plan: - IV Solu-Medrol - Duonebs q4hrs, and q2hrs prn - Symbicort - Supplemental O2 (3) T7 vertebral fracture Status: Acute Plan: - Pt walked well with PT today, no recommendations from PT for continued outpt therapy (4) BPH (benign prostatic hyperplasia) Status: Chronic Plan: - continue home meds (5) HTN (hypertension) Status: Acute Plan: - stable - lisinopril, coreg (6) Gout Status: Chronic Plan: - continue allopurinol Assessment and Plan Patient examined. Assessment and plan formulated with Milagros Hayes PA-C. I agree with the above. 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
[2016-06-22] MEDS: LEVOFLOXACIN 500 MG PREMIX INJ 100 ML IV SCH (17:13)
[2016-06-22] MEDS: TERAZOSIN HCL 5 MG CAP PO SCH (21:41)
[2016-06-23] VITALS (7 sets, daily range): BP systolic 112–136; BP diastolic 56–74; PULSE 56–106; RESP 18–22; TEMP 97.3–98.5; O2SAT 95–97
[2016-06-23] MEDS: NS + KCL 20 MEQ INJ 1,000 ML IV SCH ×2 (00:53→09:20)
[2016-06-23] MEDS: methylPREDNISolone SOD SUCC 40 MG/1 ML VIAL IV PUSH SCH ×5 (00:53→23:10)
[2016-06-23 07:29] LABS: AUTOMATED NEUTROPHIL # 9.4 TH/MM3 (1.8-7.7); HEMATOCRIT 27.6 % (39.0-51.0); HEMO FLAGS DIFF FINAL; LYMPH % 5.8 % (9.0-44.0); LYMPHOCYTE # 0.6 TH/MM3 (1.0-4.8); MEAN CELL VOLUME 93.9 FL (80.0-100.0); MEAN CORPUSCULAR HEMOGLOBIN 31.5 PG (27.0-34.0); MEAN CORPUSCULAR HGB CONC 33.5 % (32.0-36.0); MONO % 2.9 % (0.0-8.0); NEUT % 91.3 % (16.0-70.0); PLATELET COUNT 230 TH/MM3 (150-450); RED BLOOD COUNT 2.93 MIL/MM3 (4.50-5.90); WHITE BLOOD COUNT 10.3 TH/MM3 (4.0-11.0)
[2016-06-23 07:47] LABS: BICARBONATE 35.7 MEQ/L (21.0-32.0); MAGNESIUM 1.9 MG/DL (1.5-2.5)
[2016-06-23] MEDS: RESP: ALBUTEROL 2.5 MG/IPRATROPIUM 0.5 MG NEB (SCH) NEB ×4 (07:59→19:13)
[2016-06-23] MEDS: PRIMIDONE 50 MG TAB PO SCH (09:16)
[2016-06-23] MEDS: LISINOPRIL 5 MG TAB PO SCH (09:16)
[2016-06-23] MEDS: FERROUS SULFATE 325 MG (65 MG ELEMENTAL IRON) TAB PO SCH (09:16)
[2016-06-23] MEDS: ALLOPURINOL 100 MG TAB PO SCH (09:16)
[2016-06-23] MEDS: POTASSIUM CHLORIDE 20 MEQ CONTROLLED RELEASE TAB PO SCH (09:16)
[2016-06-23] MEDS: FUROSEMIDE 40 MG/4 ML VIAL IV PUSH SCH (09:16)
[2016-06-23] MEDS: SODIUM CHLORIDE 0.9% FLUSH 5 ML FLUSH FLUSH SCH ×2 (09:16→23:07)
[2016-06-23] MEDS: CARVEDILOL 3.125 MG TAB PO SCH ×2 (09:16→23:07)
[2016-06-23] MEDS: BUDESONIDE-FORMOTEROL 160/4.5 MCG INHALER INH SCH ×2 (09:17→23:07)
--- NOTE | 2016-06-23 11:53 | EKG ---
Date Performed: 06/21/2016 Time Performed: 09:52:49 PTAGE: 86 years EKG: Sinus rhythm LOW QRS VOLTAGE IN EXTREMITY LEADS MARKED JUNCTIONAL ST DEPRESSION ABNORMAL ECG PREVIOUS TRACING : 04/12/2016 17.42 DOCTOR: Flo Elizondo Interpretating Date/Time 06/23/2016 11:52:42
[2016-06-23] MEDS: LEVOFLOXACIN 500 MG PREMIX INJ 100 ML IV SCH (15:54)
[2016-06-23] MEDS: FUROSEMIDE 40 MG TAB PO SCH (17:08)
[2016-06-23] MEDS: TERAZOSIN HCL 5 MG CAP PO SCH (23:06)
[2016-06-24] VITALS (10 sets, daily range): BP systolic 112–159; BP diastolic 53–67; PULSE 72–91; RESP 18–22; TEMP 96–98.6; O2SAT 93–99
[2016-06-24] MEDS: methylPREDNISolone SOD SUCC 40 MG/1 ML VIAL IV PUSH SCH ×3 (05:31→18:33)
[2016-06-24] MEDS: RESP: ALBUTEROL 2.5 MG/IPRATROPIUM 0.5 MG NEB (SCH) NEB ×4 (08:06→22:00)
[2016-06-24 08:15] LABS: BICARBONATE 35.8 MEQ/L (21.0-32.0)
[2016-06-24 08:22] LABS: POTASSIUM 5.8 MEQ/L (3.5-5.1)
[2016-06-24] MEDS: ALLOPURINOL 100 MG TAB PO SCH (08:36)
[2016-06-24] MEDS: PRIMIDONE 50 MG TAB PO SCH (08:36)
[2016-06-24] MEDS: CARVEDILOL 3.125 MG TAB PO SCH ×2 (08:37→22:17)
[2016-06-24] MEDS: SODIUM CHLORIDE 0.9% FLUSH 5 ML FLUSH FLUSH SCH ×2 (08:38→22:17)
[2016-06-24] MEDS: FERROUS SULFATE 325 MG (65 MG ELEMENTAL IRON) TAB PO SCH (08:38)
[2016-06-24] MEDS: LISINOPRIL 5 MG TAB PO SCH (08:38)
[2016-06-24] MEDS: BUDESONIDE-FORMOTEROL 160/4.5 MCG INHALER INH SCH ×2 (08:38→21:00)
[2016-06-24] MEDS: FUROSEMIDE 40 MG TAB PO SCH ×2 (08:38→18:33)
[2016-06-24] MEDS: POTASSIUM CHLORIDE 20 MEQ CONTROLLED RELEASE TAB PO SCH (08:39)
--- NOTE | 2016-06-24 13:47 | HHI.PR ---
Subjective Remarks No new complaints. Pt reports that he is feeling overall better and is anxious to go home Objective Vitals Vital Signs Date Time Temp Pulse Resp B/P Pulse Ox O2 Delivery O2 Flow Rate FiO2 06/24/16 12:10 97 Nasal Cannula 3.00 06/24/16 12:00 98.6 80 20 116/53 98 06/24/16 08:09 97 Nasal Cannula 3.00 06/24/16 08:00 97.3 74 18 134/59 99 06/24/16 04:00 97.3 72 18 114/61 97 06/24/16 00:00 97.3 78 18 117/54 94 06/23/16 22:06 Nasal Cannula 3.00 06/23/16 19:05 97.5 91 20 115/56 95 06/23/16 15:58 98.2 106 22 136/74 96 06/23/16 15:27 97 Nasal Cannula 3.00 06/23/16 06/23/16 06/24/16 15:00 23:00 07:00 Intake Total 720 ml 242 ml 104 ml Output Total 1150 ml 650 ml 900 ml Balance -430 ml -408 ml -796 ml Intake Oral 720 ml 240 ml 100 ml IV Total 2 ml 4 ml Output Urine Total 1150 ml 650 ml 900 ml # Bowel Movements 0 0 0 Result Diagram: 06/23/16 0610 06/24/16 0649 Other Results Laboratory Tests Test 06/23/16 06/24/16 06:10 06:49 White Blood Count 10.3 TH/MM3 Red Blood Count 2.93 MIL/MM3 Hemoglobin 9.2 GM/DL Hematocrit 27.6 % Mean Corpuscular Volume 93.9 FL Mean Corpuscular Hemoglobin 31.5 PG Mean Corpuscular Hemoglobin 33.5 % Concent Red Cell Distribution Width 16.0 % Platelet Count 230 TH/MM3 Mean Platelet Volume 7.5 FL Neutrophils (%) (Auto) 91.3 % Lymphocytes (%) (Auto) 5.8 % Monocytes (%) (Auto) 2.9 % Eosinophils (%) (Auto) 0.0 % Basophils (%) (Auto) 0.0 % Neutrophils # (Auto) 9.4 TH/MM3 Lymphocytes # (Auto) 0.6 TH/MM3 Monocytes # (Auto) 0.3 TH/MM3 Eosinophils # (Auto) 0.0 TH/MM3 Basophils # (Auto) 0.0 TH/MM3 CBC Comment DIFF FINAL Differential Comment Sodium Level 129 MEQ/L 131 MEQ/L Potassium Level 5.0 MEQ/L 5.8 MEQ/L Chloride Level 89 MEQ/L 88 MEQ/L Carbon Dioxide Level 35.7 MEQ/L 35.8 MEQ/L Anion Gap 4 MEQ/L 7 MEQ/L Blood Urea Nitrogen 28 MG/DL 33 MG/DL Creatinine 1.10 MG/DL 1.18 MG/DL Estimat Glomerular Filtration 63 ML/MIN 59 ML/MIN Rate Random Glucose 144 MG/DL 135 MG/DL Calcium Level 7.9 MG/DL 8.1 MG/DL Magnesium Level 1.9 MG/DL B-Type Natriuretic Peptide 118 PG/ML Imaging Last Impressions Chest X-Ray 06/22/16 0800 Signed Impressions: Service Date/Time: Wednesday, June 22, 2016 07:57 - CONCLUSION: 1. Small bilateral pleural effusions and bibasilar atelectasis. 2. Cardiomegaly. James Maciel MD Objective Remarks General: NAD, AAOx3 Chest: Bilateral wheezing, improving air movement bilaterally Cardiac: Regular Abd: +BS, soft ND/NT Ext: minimal LLE edema A/P Problem List: (1) Systolic CHF, acute on chronic Status: Chronic Plan: - Continue diuresis with Lasix but this was converted to 40mg po BID on 06/23. Potassium held today due to hyperkalemia. - Repeat CXR (06/22) --> Small bilateral pleural effusions and bibasilar atelectasis. Cardiomegaly. - BMP, Mag, BNP in AM - Remove Miller in AM - Pt currently on 3L via [place] - Monitor I&Os - Supportive care - DVT prophylaxis (2) Acute exacerbation of chronic obstructive pulmonary disease (COPD) Status: Acute Plan: - IV Solu-Medrol - Duonebs q4hrs, and q2hrs prn - Symbicort - Supplemental O2 (3) T7 vertebral fracture Status: Acute Plan: - Pt walked well with PT and no recommendations from PT for continued outpt therapy (4) BPH (benign prostatic hyperplasia) Status: Chronic Plan: - continue home meds (5) HTN (hypertension) Status: Acute Plan: - stable - lisinopril, coreg (6) Gout Status: Chronic Plan: - continue allopurinol Assessment and Plan Patient examined. Assessment and plan formulated with Milagros Hayes PA-C. I agree with the above. 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
--- NOTE | 2016-06-24 15:30 | HHI.PR ---
Subjective Remarks LATE ENTRY FOR 06/23/16 PROGRESS NOTE FROM 06/23/16 FAILED TO SAVE IN [employer]. LE edema gone. Less SOB from admission. Objective Vitals Vital Signs Date Time Temp Pulse Resp B/P Pulse Ox O2 Delivery O2 Flow Rate FiO2 06/24/16 12:10 97 Nasal Cannula 3.00 06/24/16 12:00 98.6 80 20 116/53 98 06/24/16 08:09 97 Nasal Cannula 3.00 06/24/16 08:00 97.3 74 18 134/59 99 06/24/16 04:00 97.3 72 18 114/61 97 06/24/16 00:00 97.3 78 18 117/54 94 06/23/16 22:06 Nasal Cannula 3.00 06/23/16 19:05 97.5 91 20 115/56 95 06/23/16 15:58 98.2 106 22 136/74 96 06/23/16 06/23/16 06/24/16 15:00 23:00 07:00 Intake Total 720 ml 242 ml 104 ml Output Total 1150 ml 650 ml 900 ml Balance -430 ml -408 ml -796 ml Intake Oral 720 ml 240 ml 100 ml IV Total 2 ml 4 ml Output Urine Total 1150 ml 650 ml 900 ml # Bowel Movements 0 0 0 Result Diagram: 06/23/16 0610 06/24/16 0649 Imaging Last Impressions Chest X-Ray 06/22/16 0800 Signed Impressions: Service Date/Time: Wednesday, June 22, 2016 07:57 - CONCLUSION: 1. Small bilateral pleural effusions and bibasilar atelectasis. 2. Cardiomegaly. James Maciel MD Objective Remarks GENERAL: This is a well-nourished, well-developed patient, in no apparent distress. CARDIOVASCULAR: Regular rate and rhythm without murmurs, gallops, or rubs. RESPIRATORY: improved air movement from admission, but still with moderate b/l wheezing GASTROINTESTINAL: Abdomen soft, non-tender, nondistended. Normal active bowel sounds MUSCULOSKELETAL: Extremities without clubbing, cyanosis, or edema. NEURO: Alert & Oriented x4 to person, place, time, situation. Moves all ext x4 A/P Problem List: (1) Systolic CHF, acute on chronic Status: Chronic Plan: - continue IV diuresis with lasix 40mg IV BID, kcl --> change to PO - Repeat CXR in AM - BMP, Mag, BNP in AM (2) Acute exacerbation of chronic obstructive pulmonary disease (COPD) Status: Acute Plan: - improving - IV solumedrol - duonebs q4hrs, and q2hrs prn - symbicort (3) T7 vertebral fracture Status: Acute Plan: - PT to evaluate (4) BPH (benign prostatic hyperplasia) Status: Chronic Plan: - continue home meds (5) HTN (hypertension) Status: Acute Plan: - stable - lisinopril, coreg (6) Gout Status: Chronic Plan: - continue allopurinol Assessment and Plan Patient examined. Assessment and plan formulated with Milagros Hayes PA-C. I agree with the above. 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
[2016-06-24] MEDS: LEVOFLOXACIN 500 MG PREMIX INJ 100 ML IV SCH (18:35)
[2016-06-24] MEDS: TERAZOSIN HCL 5 MG CAP PO SCH (22:17)
[2016-06-25] VITALS (8 sets, daily range): BP systolic 102–138; BP diastolic 53–71; PULSE 84–115; RESP 20–22; TEMP 97.4–98.6; O2SAT 93–96
[2016-06-25] MEDS: methylPREDNISolone SOD SUCC 40 MG/1 ML VIAL IV PUSH SCH ×5 (00:15→23:11)
[2016-06-25] MEDS: RESP: ALBUTEROL 2.5 MG/IPRATROPIUM 0.5 MG NEB (SCH) NEB ×3 (08:06→15:34)
[2016-06-25 08:30] LABS: BICARBONATE 35.8 MEQ/L (21.0-32.0); MAGNESIUM 1.9 MG/DL (1.5-2.5)
[2016-06-25 08:41] LABS: POTASSIUM 5.7 MEQ/L (3.5-5.1)
[2016-06-25] MEDS: POTASSIUM CHLORIDE 20 MEQ CONTROLLED RELEASE TAB PO SCH ×2 (09:00→09:52)
[2016-06-25] MEDS: SODIUM CHLORIDE 0.9% FLUSH 5 ML FLUSH FLUSH SCH ×2 (09:50→23:11)
[2016-06-25] MEDS: CARVEDILOL 3.125 MG TAB PO SCH ×2 (09:51→23:10)
[2016-06-25] MEDS: FERROUS SULFATE 325 MG (65 MG ELEMENTAL IRON) TAB PO SCH (09:51)
[2016-06-25] MEDS: BUDESONIDE-FORMOTEROL 160/4.5 MCG INHALER INH SCH ×2 (09:51→23:11)
[2016-06-25] MEDS: FUROSEMIDE 40 MG TAB PO SCH ×2 (09:52→17:44)
[2016-06-25] MEDS: LISINOPRIL 5 MG TAB PO SCH (09:53)
[2016-06-25] MEDS: PRIMIDONE 50 MG TAB PO SCH (09:53)
[2016-06-25] MEDS: ALLOPURINOL 100 MG TAB PO SCH (09:54)
--- NOTE | 2016-06-25 14:30 | HHI.PR ---
Subjective Remarks Pt c/o swelling at left arm. SOB improved from admission. Objective Vitals Vital Signs Date Time Temp Pulse Resp B/P Pulse Ox O2 Delivery O2 Flow Rate FiO2 06/25/16 12:00 98.5 89 22 129/68 96 06/25/16 08:12 94 Nasal Cannula 2.00 06/25/16 08:00 Nasal Cannula 3.00 Humidified 06/25/16 08:00 97.4 115 20 138/71 93 06/25/16 03:50 97.5 90 22 134/60 95 06/24/16 23:30 Nasal Cannula 3.00 06/24/16 23:18 97.5 85 22 126/60 93 06/24/16 22:01 98 Nasal Cannula 2.00 06/24/16 20:58 96.0 82 22 159/67 96 06/24/16 16:00 97.3 91 20 112/57 96 06/24/16 06/24/16 06/25/16 15:00 23:00 07:00 Intake Total 720 ml 574 ml 4 ml Output Total 825 ml 500 ml 1350 ml Balance -105 ml 74 ml -1346 ml Intake Oral 720 ml 360 ml 0 ml IV Total 214 ml 4 ml Output Urine Total 825 ml 500 ml 1350 ml # Bowel Movements 3 0 0 Result Diagram: 06/23/16 0610 06/25/16 0700 Imaging Last Impressions Chest X-Ray 06/22/16 0800 Signed Impressions: Service Date/Time: Wednesday, June 22, 2016 07:57 - CONCLUSION: 1. Small bilateral pleural effusions and bibasilar atelectasis. 2. Cardiomegaly. James Maciel MD Objective Remarks GENERAL: This is a well-nourished, well-developed patient, in no apparent distress. CARDIOVASCULAR: Regular rate and rhythm without murmurs, gallops, or rubs. RESPIRATORY: improved air movement from admission, but still with moderate b/l wheezing GASTROINTESTINAL: Abdomen soft, non-tender, nondistended. Normal active bowel sounds MUSCULOSKELETAL: Extremities without clubbing, cyanosis, or edema. NEURO: Alert & Oriented x4 to person, place, time, situation. Moves all ext x4 A/P Problem List: (1) Systolic CHF, acute on chronic Status: Chronic Plan: - PO lasix - Repeat CXR in AM - BMP, Mag, BNP in AM (2) Acute exacerbation of chronic obstructive pulmonary disease (COPD) Status: Acute Plan: - improving - IV solumedrol --> hopefully will be able to convert to PO prednisone 3/4 - duonebs q4hrs, and q2hrs prn - symbicort (3) T7 vertebral fracture Status: Acute Plan: - PT to evaluate (4) BPH (benign prostatic hyperplasia) Status: Chronic Plan: - continue home meds (5) HTN (hypertension) Status: Acute Plan: - stable - lisinopril, coreg (6) Gout Status: Chronic Plan: - continue allopurinol Problem Qualifiers (1) T7 vertebral fracture: (2) HTN (hypertension): Qualified Code: I10 - Essential hypertension (3) Gout: Qualified Code: M1A.9XX0 - Chronic gout without tophus, unspecified cause, unspecified site Jakob Friedman DO Jun 25, 2016 14:30 (3) Gout: Qualified Code: M1A.9XX0 - Chronic gout without tophus, unspecified cause, unspecified site Jakob Friedman DO Jun 25, 2016 14:30
[2016-06-25] MEDS: LEVOFLOXACIN 500 MG PREMIX INJ 100 ML IV SCH (15:57)
[2016-06-25] MEDS: RESP: ALBUTEROL 2.5 MG/IPRATROPIUM 0.5 MG NEB (PRN) NEB (19:36)
[2016-06-25] MEDS: TERAZOSIN HCL 5 MG CAP PO SCH (23:10)
[2016-06-26 04:00] VITALS: BP 103/52; PULSE 76; RESP 22; TEMP 97.4; O2SAT 94
[2016-06-26] MEDS: methylPREDNISolone SOD SUCC 40 MG/1 ML VIAL IV PUSH SCH ×3 (06:11→17:18)
[2016-06-26 08:00] VITALS: BP 113/64; PULSE 115; RESP 24; TEMP 97.9; O2SAT 94
[2016-06-26 08:27] LABS: BICARBONATE 33.2 MEQ/L (21.0-32.0); MAGNESIUM 2.1 MG/DL (1.5-2.5); POTASSIUM 6.3 MEQ/L (3.5-5.1)
[2016-06-26] MEDS: CARVEDILOL 3.125 MG TAB PO SCH ×2 (08:30→22:17)
[2016-06-26] MEDS: FERROUS SULFATE 325 MG (65 MG ELEMENTAL IRON) TAB PO SCH (08:30)
[2016-06-26] MEDS: LISINOPRIL 5 MG TAB PO SCH (08:30)
[2016-06-26] MEDS: ALLOPURINOL 100 MG TAB PO SCH (08:30)
[2016-06-26] MEDS: POTASSIUM CHLORIDE 20 MEQ CONTROLLED RELEASE TAB PO SCH (08:30)
[2016-06-26] MEDS: FUROSEMIDE 40 MG TAB PO SCH ×2 (08:31→17:18)
[2016-06-26] MEDS: PRIMIDONE 50 MG TAB PO SCH (08:31)
[2016-06-26] MEDS: SODIUM CHLORIDE 0.9% FLUSH 5 ML FLUSH FLUSH SCH ×2 (08:31→22:17)
[2016-06-26] MEDS: BUDESONIDE-FORMOTEROL 160/4.5 MCG INHALER INH SCH ×2 (08:32→22:17)
--- NOTE | 2016-06-26 11:09 | RADRPT ---
EXAM DATE/TIME: 06/26/2016 10:34 [facility] COMPARISON: CHEST PA & LAT, June 22, 2016, 7:57. INDICATIONS : Short of Breath. MEDICAL HISTORY : Hypertension. Chronic obstructive pulmonary disease. Cardiovascular disease. Hiatal Hernia. SURGICAL HISTORY : None. ENCOUNTER: Subsequent ACUITY: 4 - 6 days PAIN SCORE: 0/10 LOCATION: Bilateral chest FINDINGS: AP and lateral views of the chest demonstrate cardiac silhouette size at the upper limits for normal. There is elevation the right hemidiaphragm and there are stable pleural-based opacities bilaterally. No pneumothorax is visualized. Bones demonstrate no acute finding. There is a chronic compression fr acture in the mid thoracic spine and upper lumbar spine. Patient is post reverse right shoulder arthr oplasty. CONCLUSION: 1. Stable small bilateral pleural effusions with associated compressive atelectasis. 2. Stable compression fractures in the thoracic and lumbar spine. Edil Mandujano MD on June 26, 2016 at 11:06 Board Certified Radiologist. This report was verified electronically.
[2016-06-26 12:00] VITALS: BP 118/55; PULSE 84; RESP 24; TEMP 97.9; O2SAT 87
[2016-06-26] MEDS: RESP: ALBUTEROL 2.5 MG/IPRATROPIUM 0.5 MG NEB (PRN) NEB (12:32)
[2016-06-26 12:34] VITALS: O2SAT 95
[2016-06-26] MEDS: LEVOFLOXACIN 500 MG PREMIX INJ 100 ML IV SCH (15:58)
[2016-06-26 16:00] VITALS: BP 122/32; PULSE 56; RESP 24; TEMP 98.2; O2SAT 94
[2016-06-26] MEDS ORDERED: SODIUM POLYSTYRENE SULFONATE SUSP 15 GM/60 ML CUP PO ONE (17:30)
--- NOTE | 2016-06-26 17:34 | HHI.PR ---
Subjective Remarks No new complaints. Objective Vitals Vital Signs Date Time Temp Pulse Resp B/P Pulse Ox O2 Delivery O2 Flow Rate FiO2 06/26/16 12:34 95 Nasal Cannula 2.00 06/26/16 12:00 97.9 84 24 118/55 87 06/26/16 11:04 Nasal Cannula 3.00 Humidified 06/26/16 08:00 97.9 115 24 113/64 94 06/26/16 04:00 97.4 76 22 103/52 94 06/26/16 01:35 Nasal Cannula 3.00 Humidified 06/25/16 23:15 97.5 89 22 108/53 94 06/25/16 20:40 97.5 84 20 111/56 95 06/25/16 06/25/16 06/26/16 15:00 23:00 07:00 Intake Total 720 ml 480 ml 0 ml Output Total 1075 ml 350 ml 475 ml Balance -355 ml 130 ml -475 ml Intake Oral 720 ml 480 ml 0 ml Output Urine Total 1075 ml 350 ml 475 ml # Voids 1 # Bowel Movements 3 0 0 Result Diagram: 06/23/16 0610 06/26/16 0651 Imaging Last Impressions Chest X-Ray 06/22/16 0800 Signed Impressions: Service Date/Time: Wednesday, June 22, 2016 07:57 - CONCLUSION: 1. Small bilateral pleural effusions and bibasilar atelectasis. 2. Cardiomegaly. James Maciel MD Objective Remarks GENERAL: This is a well-nourished, well-developed patient, in no apparent distress. CARDIOVASCULAR: Regular rate and rhythm without murmurs, gallops, or rubs. RESPIRATORY: improved air movement from admission, today pt's wheezing is improved, still with prolonged end expiratory phase and some mild wheezing on exhalation GASTROINTESTINAL: Abdomen soft, non-tender, nondistended. Normal active bowel sounds MUSCULOSKELETAL: Extremities without clubbing, cyanosis, or edema. NEURO: Alert & Oriented x4 to person, place, time, situation. Moves all ext x4 A/P Problem List: (1) Systolic CHF, acute on chronic Status: Chronic Plan: - PO lasix - CXR (06/26/16) --> NO overt CHF, mild b/l pleural effusions - anticipate d/c in next 1-2 days (2) Acute exacerbation of chronic obstructive pulmonary disease (COPD) Status: Acute Plan: - improving - IV solumedrol --> change to PO prednisone - duonebs q6hrs, and q2hrs prn - symbicort (3) T7 vertebral fracture Status: Acute Plan: - PT (4) BPH (benign prostatic hyperplasia) Status: Chronic Plan: - continue home meds (5) HTN (hypertension) Status: Acute Plan: - stable - lisinopril, coreg (6) Gout Status: Chronic Plan: - continue allopurinol Problem Qualifiers (1) T7 vertebral fracture: (2) HTN (hypertension): Qualified Code: I10 - Essential hypertension (3) Gout: Qualified Code: M1A.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
[2016-06-26] MEDS ORDERED: PILL SPLITTER OTHER PRN (17:45)
[2016-06-26 20:00] VITALS: BP 136/72; PULSE 102; RESP 20; TEMP 97.3; O2SAT 93
[2016-06-26] MEDS: TERAZOSIN HCL 5 MG CAP PO SCH (22:17)
[2016-06-26] MEDS: predniSONE 20 MG TAB PO SCH (22:17)
[2016-06-27] VITALS: BP 111/52; PULSE 91; RESP 18; TEMP 97.8; O2SAT 94
[2016-06-27 04:00] VITALS: BP 101/55; PULSE 97; RESP 18; TEMP 98; O2SAT 97
[2016-06-27 08:30] VITALS: BP 121/63; PULSE 78; RESP 20; TEMP 97.4; O2SAT 91
[2016-06-27] MEDS: BUDESONIDE-FORMOTEROL 160/4.5 MCG INHALER INH SCH (09:00)
[2016-06-27] MEDS: RESP: ALBUTEROL 2.5 MG/IPRATROPIUM 0.5 MG NEB (SCH) NEB ×2 (09:05→12:59)
[2016-06-27 09:06] VITALS: O2SAT 91
[2016-06-27] MEDS: CARVEDILOL 3.125 MG TAB PO SCH (09:45)
[2016-06-27] MEDS: SODIUM CHLORIDE 0.9% FLUSH 5 ML FLUSH FLUSH SCH ×2 (09:45→10:08)
[2016-06-27] MEDS: FERROUS SULFATE 325 MG (65 MG ELEMENTAL IRON) TAB PO SCH (09:45)
[2016-06-27] MEDS: predniSONE 20 MG TAB PO SCH (10:07)
[2016-06-27] MEDS: FUROSEMIDE 40 MG TAB PO SCH (10:07)
[2016-06-27] MEDS: ALLOPURINOL 100 MG TAB PO SCH (10:08)
[2016-06-27] MEDS: LISINOPRIL 5 MG TAB PO SCH (10:08)
[2016-06-27] MEDS: PRIMIDONE 50 MG TAB PO SCH (10:08)
--- NOTE | 2016-06-27 11:38 | HHI.FF ---
Face to Face Verification Diagnosis: (1) T7 vertebral fracture (2) Acute exacerbation of chronic obstructive pulmonary disease (COPD) (3) HTN (hypertension) (4) Systolic CHF, acute on chronic (5) BPH (benign prostatic hyperplasia) Physical Therapy Order: Evaluate and Treat, Improve ambulation, Strength and gait training Home Health Nursing Order: CHF education Oxygen administration education Medication education-adverse effect Nursing assessment with vital signs I have seen patient Pacheco Teran on 06/27/16. My clinical findings support the need for the requested home health care services because: Ltd mobility - disease progression Patient has SOB Deconditioned w/ increased weakness Med compliance is questionable Limited ability to care for self Need for psychosocial assistance I certify that my clinical findings support that this patient is homebound because: Impaired cognitive ability/safety Hx COPD- exertion dyspnea/weakness Unsafe to leave home unassisted Need for psychosocial assistance Unable to use public transportation Jakob Friedman DO Jun 27, 2016 11:38
[2016-06-27] MEDS ORDERED: PRED20 PO (11:41)
[2016-06-27] MEDS ORDERED: FURO40TA PO (11:41)
[2016-06-27 12:06] VITALS: BP 103/54; PULSE 84; RESP 21; TEMP 97.7; O2SAT 91
--- NOTE | 2016-06-27 12:10 | HHI.DS ---
Discharge Summary Admission Date Jun 21, 2016 at 12:37 Discharge Date: Jun 27, 2016 Admitting Diagnosis respiratory distress, COPD and CHF exacerbation, hyponatremia (1) Systolic CHF, acute on chronic Diagnosis: Principal (2) Acute exacerbation of chronic obstructive pulmonary disease (COPD) Diagnosis: Principal (3) T7 vertebral fracture Diagnosis: Secondary (4) BPH (benign prostatic hyperplasia) Diagnosis: Secondary (5) HTN (hypertension) Diagnosis: Secondary (6) Gout Diagnosis: Secondary Brief History Patient is a pleasant 86-year-old male with known history of COPD and systolic CHF. Patient was most recently hospitalized at [facility] due to COPD exacerbation. During that hospitalization, patient was treated with IV steroids, IV Levaquin, when necessary BiPAP was used as well. Patient' s mobility was compromised by severe acute compression fracture involving T7. Patient returns to [place] this morning with respiratory distress. Patient complains of worsening shortness of breath for 3-4 days prior to arrival. Patient also complains of worsening lower extremity weakness starting at his feet and going all the way up to his lower abdomen. Patient also noted swelling in his face. For the last several days patient has been too weak to get off of the toilet by himself and his had to pull him up. Patient reports that he is been using his inhalers for COPD as prescribed. Per ER physician patient originally presented to the ER with some respiratory distress. In triage his oxygen saturation was 86% on 3 L by nasal cannula. Patient given IV Lasix, Solu-Medrol, nebulized breathing treatments and is now saturating adequately on 3 L by nasal cannula. At the time of my examination patient appeared comfortable, but quickly became short of breath with minimal movement in the bed. Patient has obvious volume overload with 2+ pitting edema in his lower extremities up to the level of his knees. On auscultation of his lungs, his air movement is poor, tight, and wheezing. Patient will be admitted to [facility] for further evaluation and treatment. I anticipate that patient will require minimally a 3 to four- day hospitalization. CBC/BMP: 06/23/16 0610 06/26/16 0651 Significant Findings Laboratory Tests Test 06/25/16 06/26/16 07:00 06:51 Sodium Level 133 MEQ/L 129 MEQ/L (136-145) (136-145) Potassium Level 5.7 MEQ/L 6.3 MEQ/L (3.5-5.1) (3.5-5.1) Chloride Level 90 MEQ/L 85 MEQ/L (98-107) (98-107) Carbon Dioxide Level 35.8 MEQ/L 33.2 MEQ/L (21.0-32.0) (21.0-32.0) Blood Urea Nitrogen 37 MG/DL (7-18) 46 MG/DL (7-18) Estimat Glomerular Filtration 66 ML/MIN (>89) 51 ML/MIN (>89) Rate Random Glucose 136 MG/DL 126 MG/DL (74-106) (74-106) Calcium Level 8.1 MG/DL (8.5-10.1) Creatinine 1.32 MG/DL (0.60-1.30) Imaging Last Impressions Chest X-Ray 06/26/16 0800 Signed Impressions: Service Date/Time: Tuesday, June 26, 2016 10:34 - CONCLUSION: 1. Stable small bilateral pleural effusions with associated compressive atelectasis. 2. Stable compression fractures in the thoracic and lumbar spine. Edil Mandujano MD PE at Discharge GENERAL: This is a well-nourished, well-developed patient, in no apparent distress. CARDIOVASCULAR: Regular rate and rhythm without murmurs, gallops, or rubs. RESPIRATORY: improved air movement from admission, today pt's wheezing is improved, still with prolonged end expiratory phase and some mild wheezing on exhalation GASTROINTESTINAL: Abdomen soft, non-tender, nondistended. Normal active bowel sounds MUSCULOSKELETAL: Extremities without clubbing, cyanosis, or edema. NEURO: Alert & Oriented x4 to person, place, time, situation. Moves all ext x4 Hospital Course (1) Systolic CHF, acute on chronic Status: Chronic Plan: - Pt treated with IV lasix with good diuresis from admission - Pt's dosing upon discharge was increased from lasix 40mg daily (on admission) to 40mg BID - Pt still with some mild LE edema, Zaroxolyn could be considered in the future if pt declines with current regimen - Pt became hyperkalemic with KCL supplementation. I gave Kayexalate 06/26/16. - I have written for repeat BMP on Tuesday06/30/16 to reassess her potassium level. - CXR (06/26/16) --> NO overt CHF, mild b/l pleural effusions - discharge to home with HHC and home PT (2) Acute exacerbation of chronic obstructive pulmonary disease (COPD) Status: Acute Plan: - much improved from admission - IV solumedrol converted to PO prednisone - I have written for prolonged prednisone taper on discharge - at home, continue duonebs q6hrs while awake - symbicort (3) T7 vertebral fracture Status: Acute Plan: - PT - I have requested HHC and home PT (4) BPH (benign prostatic hyperplasia) Status: Chronic Plan: - continue home meds (5) HTN (hypertension) Status: Acute Plan: - stable - lisinopril, coreg (6) Gout Status: Chronic Plan: - continue allopurinol Pt Condition on Discharge: Stable Discharge Disposition: Disch w/ Home Health Serv Discharge Instructions DIET: Follow Instructions for: Heart Healthy Diet Activities you can perform: Regular-No Restrictions Follow up Referrals: PCP Follow-up - 3-[address] Brady [facility]/ with [facility] New Medications: Prednisone (Prednisone) 20 Mg Tab 30 MG PO BID Dispense: QS 30mg BID x 5d, then 20mg BID x 5d, then 20mg daily x 5d, then 10mg daily x 5d, then stop copd #20 Ref 0 TAB Changed Medications: Furosemide (Furosemide) 40 Mg Tab 40 MG PO BID chf #60 Ref 0 TAB (Changed from: DAILY; 30) Continued Medications: Albuterol 18 GM Inh (Ventolin Hfa 18 GM Inh) 90 Mcg/Act Aer 2 PUFF INH Q4H PRN SHORTNESS OF BREATH #1 Ref 0 INHALER Albuterol Neb (Albuterol Neb) 0.63 Mg/3 Ml Neb 0.63 MG NEB Q6HR PRN SHORTNESS OF BREATH #25 Ref 0 NEBULE Allopurinol (Allopurinol) 100 Mg Tab 100 MG PO DAILY Gout #30 Ref 0 TAB Carvedilol (Carvedilol) 3.125 Mg Tab 3.125 MG PO BID #30 Ref 0 TAB Ferrous Sulfate (Ferrous Sulfate) 325 Mg Tab 325 MG PO DAILY Nutritional Supplement #30 Ref 0 TAB Ipratropium Neb (Ipratropium Neb) 0.5 Mg/2.5 Ml Amp 0.5 MG NEB Q6HR PRN SHORTNESS OF BREATH #120 Ref 0 NEBULE Lisinopril (Lisinopril) 2.5 Mg Tab 2.5 MG PO DAILY #30 Ref 0 TAB Primidone (Primidone) 50 Mg Tab 50 MG PO DAILY Control Seizures #30 Ref 0 TAB Terazosin (Terazosin) 5 Mg Cap 5 MG PO HS #30 Ref 0 CAP Discontinued Medications: Potassium Chloride ER (Potassium Chloride ER) 20 Meq Tab 40 MEQ PO DAILY Electrolyte Replacement #30 Ref 0 TAB Jakob Friedman DO Jun 27, 2016 12:10
--- NOTE | 2016-06-27 12:10 | HHI.DCPOC ---
Discharge Care Plan Diagnosis: (1) Systolic CHF, acute on chronic (2) COPD exacerbation (3) BPH (benign prostatic hyperplasia) (4) DM (diabetes mellitus) (5) HTN (hypertension) Goals to Promote Your Health * To prevent worsening of your condition and complications * To maintain your health at the optimal level Directions to Meet Your Goals Take your medications as prescribed Follow your dietary instruction Follow activity as directed Keep your appointments as scheduled Take your immunizations and boosters as scheduled If your symptoms worsen call your PCP, if no PCP go to Urgent Care Center or Emergency Room Smoking is Dangerous to Your Health. Avoid second hand smoke Call the 24-hour hour crisis hotline for domestic abuse at Jakob Friedman DO Jun 27, 2016 12:10
[2016-06-27 13:08] LABS: BICARBONATE 40.1 MEQ/L (21.0-32.0); POTASSIUM 3.5 MEQ/L (3.5-5.1)
--- NOTE | 2016-07-05 09:26 | PQ ---
Physician Query Response Document PATIENT: RUTHY PORTILLO : 1930 ADMIT DATE: 06/21/2016 12:37 PM DISCH DATE: 06/27/2016 4:10 PM RESPONDING PROVIDER #: Eschangela QUERY TEXT: Respiratory Failure Acuity and Type Respiratory distress is documented in the Medical Record. Please specify the type and acuity (include s suspected or probable) Such as: -- Acute respiratory failure - With hypoxia - With hypercapnia -- Chronic respiratory failure - With hypoxia - With hypercapnia -- Acute on chronic respiratory failure - With hypoxia - With hypercapnia -- Other, please specify The patient's Clinical Indicators include: Respiratory distress w : Decreased air entry bilaterally, end expiratory wheeze, accessory muscles of respiration used.w oxygen saturation 86% on 3L CO2 33 RR 31 Given IV Lasix and Solumedrol IV as well as nebulized breathing tx HX COPD w use of oxygen at home 2 L Query created by: Celine Couch on 06/23/2016 11:53 AM RESPONSE TEXT: Pt admitted with Acute Respiratory Failure and hypoxia. QUERY TEXT: Fracture Cause Traumatic or Non-Trauma Please clarify whether the documented fracture is due to traumatic or non-traumatic cause Such as: Traumatic: -- Traumatic compression fracture -- Traumatic fracture Non-traumatic: -- Chronic fracture -- Non-traumatic compression fracture -- Insufficiency -- Spontaneous -- Pathological fracture (specify cause such as osteoporosis or malignancy) -- Stress fracture -- Wedge fracture -- Other, please specify The patient's Clinical Indicators include: T7 vertebral fracture Stathwus: Acute hx of osteoporosis Query created by: Celine Couch on 06/23/2016 12:00 PM RESPONSE TEXT: Pt has a likely NON-traumatic compression fracture due to his advanced age. Electronically signed by: Jakob Friedman DO 07/05/2016 9:22 AM
== END 2016-06-27 16:10 | disposition home health service (06) | DRG 190 ==
LOC: NEPA 09:31 → NEDA 12:37 → N04B 17:18
PROVIDERS: ADMIT Hospitalist; ATTEND Hospitalist
PROC: 0T9B70Z Drainage of Bladder with Drainage Device, Via Natural or Artificial Opening (ICD-10-PCS; principal; 2016-06-21)
DX: J44.1 Chronic obstructive pulmonary disease with (acute) exacerbation (principal); I50.23 Acute on chronic systolic (congestive) heart failure; J96.01 Acute respiratory failure with hypoxia; I27.2 Other secondary pulmonary hypertension; E87.1 Hypo-osmolality and hyponatremia; J98.11 Atelectasis; M48.54XA Collapsed vertebra, not elsewhere classified, thoracic region, initial encounter for fracture; K74.60 Unspecified cirrhosis of liver; Z99.81 Dependence on supplemental oxygen; E11.9 Type 2 diabetes mellitus without complications; I10 Essential (primary) hypertension; I25.10 Atherosclerotic heart disease of native coronary artery without angina pectoris; K44.9 Diaphragmatic hernia without obstruction or gangrene; M19.90 Unspecified osteoarthritis, unspecified site; K31.819 Angiodysplasia of stomach and duodenum without bleeding; G25.0 Essential tremor; E78.5 Hyperlipidemia, unspecified; Z87.891 Personal history of nicotine dependence; N40.0 Benign prostatic hyperplasia without lower urinary tract symptoms; M1A.9XX0 Chronic gout, unspecified, without tophus (tophi); Z79.899 Other long term (current) drug therapy; E87.5 Hyperkalemia
CPT/HCPCS: 51702; 71010; 71020; 76937; 80048; 80053; 81001; 83735; 83880; 84484; 85025; 85610; 86850; 86900; 86901; 87070; 87205; 93005; 94640; 94664; J1940; J1956; J2920; J2930; J3480; J7512